=== PATIENT | male | born 1985 | race Caucasian/White ===

== ENCOUNTER 2017-04-19 03:54 | Emergency (ER) | payer SELFPAY ==
[~2017-04-19] VITALS: Ht 160 cm; Wt 59.0 kg
[2017-04-19] MEDS ORDERED: BACITRACIN 0.9 GM PACKET OINTMENT TP ONE (05:00)
[2017-04-19] MEDS ORDERED: PERTUSS(ACELL),DIPH,TET VAC/PF 0.5 ML VIAL IM ONE (05:00)
[2017-04-19] MEDS ORDERED: LIDOCAINE HCL BUFFERED 1% 20 ML VIAL INJ ONE (05:00)
[2017-04-19 06:32] VITALS: BP 137/71
== END 2017-04-19 07:16 | disposition home or self-care (01) ==
LOC: EMS 03:56
DX: S00.81XA Abrasion of other part of head, initial encounter (principal); F17.210 Nicotine dependence, cigarettes, uncomplicated; Y04.0XXA Assault by unarmed brawl or fight, initial encounter; Y93.89 Activity, other specified; Y92.89 Other specified places as the place of occurrence of the external cause; Y99.8 Other external cause status
CPT/HCPCS: 70160; 90471; 90715; 99284; J3490